=== PATIENT | female | born 1985 ===

== ENCOUNTER 2017-07-27 09:42 | Emergency (ER) | payer OTHER ==
[2017-07-27 10:06] VITALS: BMI 38.7
[2017-07-27 10:07] VITALS: BP 114/73; PULSE 65; RESP 17; TEMP 98.5; O2SAT 100
--- NOTE | 2017-07-27 10:37 | ED PDOC ---
HPI: General Adult Time Seen by Provider: 07/27/17 10:19 Chief Complaint (Provider): N/V, dizziness, left foot pain x 1 week History Per: Patient History/Exam Limitations: no limitations Onset/Duration Of Symptoms: Days Have you had recent travel within the past 21 days to any of the following countries: [place], [place], [place] or [place]?: No Current Symptoms Are (Timing): Still Present Additional Complaint(s): 32 yo female with no medical problems presents with suprapubic discomfort, nausea, and dizziness for 3 days. Pt also reports localized left heel pain for 1 week. Pt states she has not taken anything for the symptoms. Pt denies fever /chills. Unknown status Past Medical History Reviewed: Historical Data, Nursing Documentation, Vital Signs Vital Signs: Last Vital Signs Temp 98.5 F 07/27/17 10:06 Pulse 65 07/27/17 10:06 Resp 17 07/27/17 10:06 BP 114/73 07/27/17 10:06 Pulse Ox 100 07/27/17 10:56 - Medical History PMH: Denies: Alzheimer's Disease, Anemia, Anxiety, Arthritis, Asthma, Atrial Fibrillation, Bipolar Disorder, Bronchitis, Cardia Arrhythmia, CHF, COPD, Crohn' s Disease, Dementia, Depression, Diverticulitis, Emphysema, Fractures, Gastritis , Gall Bladder Disease, HIV, HTN, Hypercholesterolemia, Hyperthyroidism, Hypothyroidism, Kidney Stones, Migraine, Mitral Valve Prolapse, Multiple Sclerosis, Osteoporosis, Pancreatitis, Parkinson's Disease, Peripheral Edema, Pneumonia, Post Traumatic Stress Disorder, Pulmonary Embolism, Chronic Kidney Disease, Rheumatoid Arthritis, Schizophrenia, Seizures, Sickle Cell Disease, Sexually Transmitted Disease, Sleep Apnea, TIA - Surgical History Surgical History: Denies: Appendectomy, CABG, Carotid Endarterectomy, Cholecystectomy, Coronary Stent, Pacemaker, Tonsillectomy - Family History Family History: States: No Known Family Hx - Living Arrangements Living Arrangements: With Family - Social History Current smoker - smoking cessation education provided: No - Immunization History Hx Tetanus Toxoid Vaccination: No - Home Medications Home Medications: Ambulatory Orders Medication Instructions Recorded Dexlansoprazole [Dexilant] 60 mg PO DAILY 07/24/16 Metoclopramide [Reglan] 10 mg PO BID 07/24/16 Doxycycline Hyclate 100 mg PO Q12 #14 tab 07/26/16 Ibuprofen [Motrin Tab] 800 mg PO TID PRN #30 tab 07/26/16 Doxycycline Hyclate 100 mg PO BID 7 Days capsule 12/01/16 Ibuprofen [Motrin] 600 mg PO TID 7 Days tab 12/01/16 Naproxen [Naprosyn] 500 mg PO BID #20 tab 05/09/17 Nitrofurantoin Macrocrystals 100 mg PO BID #14 cap 05/09/17 [Macrobid] Multivit/Folic Acid/I 1 tab PO DAILY #30 tab 07/27/17 [ Plus] - Allergies Allergies/Adverse Reactions: Allergies Allergy/AdvReac Type Severity Reaction Status Date / Time No Known Allergies Allergy Verified 07/27/17 10:35 Review of Systems ROS Statement: Except As Marked, All Systems Reviewed And Found Negative Constitutional: Negative for: Fever, Chills Gastrointestinal: Positive for: Nausea, Vomiting, Abdominal Pain Physical Exam - Reviewed Nursing Documentation Reviewed: Yes Vital Signs Reviewed: Yes - Physical Exam Appears: Positive for: Well, Non-toxic, No Acute Distress Head Exam: Positive for: ATRAUMATIC, NORMAL INSPECTION, NORMOCEPHALIC Skin: Positive for: Normal Color, Warm, DRY Eye Exam: Positive for: Normal appearance ENT: Positive for: Normal ENT Inspection Neck: Positive for: Normal, Painless ROM Cardiovascular/Chest: Positive for: Regular Rate, Rhythm Respiratory: Positive for: CNT, Normal Breath Sounds Gastrointestinal/Abdominal: Positive for: Normal Exam, Bowel Sounds, Soft. Negative for: Tenderness, Guarding Back: Positive for: Normal Inspection Extremity: Positive for: Normal ROM, Other (Tenderness of achilles tendon, left ) Neurologic/Psych: Positive for: Alert, Oriented - Laboratory Results Result Diagrams: 07/27/17 11:00 07/27/17 11:00 - ECG O2 Sat by Pulse Oximetry: 100 Medical Decision Making Medical Decision Making: (+). PT Labs and US ordered. US with (+) gestational sac, no yolk sac. Consistent with beta hCg < 1000 Repeat beta HcG in 48 hours. Labs normal. Disposition - Clinical Impression Clinical Impression: Achilles tendonitis, -related symptom - Patient ED Disposition Is Patient to be Admitted: No Counseled Patient/Family Regarding: Diagnosis, Need For Followup, Rx Given - Disposition Referrals: [facility] [Outside] [facility] [Outside] Disposition: Routine/Home Disposition Time: 13:18 Condition: GOOD Additional Instructions: Please follow-up with OB in 48 hours. Prescriptions: Multivit/Folic Acid/I [ Plus] 1 tab PO DAILY #30 tab Instructions: Achilles Tendinitis (ED) Print Language: TAMAZIGHT
[2017-07-27] MEDS ORDERED: Lactated Ringer's 1,000 ML IV SCH (11:00)
[2017-07-27 11:16] LABS: HEMOGLOBIN 12.5 g/dL (12.0-16.0); MEAN CELL VOLUME 83.6 fl (81.0-99.0); MEAN CORPUSCULAR HEMOGLOBIN 28.1 pg (27.0-31.0); MEAN CORPUSCULAR HGB CONC 33.6 g/dL (33.0-37.0); RBC 4.45 Mil/uL (3.80-5.20)
[2017-07-27 11:35] LABS: SQUAMOUS EPITHIAL 11 /hpf (0-5); URINE BACTERIA RARE (<OCC); URINE BILIRUBIN NEGATIVE (NEGATIVE); URINE BLOOD NEGATIVE (NEGATIVE); URINE CLARITY CLOUDY (Clear); URINE COLOR YELLOW (YELLOW); URINE GLUCOSE (UA) NEG (Normal); URINE LEUKOCYTE ESTERASE SMALL Leu/uL (Negative); URINE NITRATE NEGATIVE (NEGATIVE); URINE PROTEIN NEGATIVE (NEGATIVE); URINE UROBILINOGEN 0.2-1.0 mg/dL (0.2-1.0)
[2017-07-27 11:37] LABS: ALB/GLOB RATIO 1.2 (1.0-2.1); ALBUMIN 4.2 g/dL (3.5-5.0); ALT/SGPT 58 U/L (9-52); AST/SGOT 28 U/L (14-36); BLOOD UREA NITROGEN 13 mg/dl (7-17); CALCIUM 9.3 mg/dL (8.4-10.2); GFR AFRICAN-AMERICAN > 60; GFR NON-AFRICAN AMERICAN > 60
--- NOTE | 2017-07-27 12:42 | US ---
PROCEDURE: First trimester ultrasound HISTORY: , abdominal pain COMPARISON: None. TECHNIQUE: Standard protocol for this study/examination. FINDINGS: Small gestational sac 0.91 cm below threshold for calculation of reliable gestational age. No yolk sac or pole identified. Uterus measures 5.6 x 7.3 x 9.8 cm. Location of fibroid and size: Anterior lower uterine segment 1.7 x 1.8 cm. Right ovary 2.5 x 4.3 cm. Normal flow. Left ovary 2.2 x 2.4 x 3.3 cm. Normal flow. No adnexal masses identified. Closed cervix 3.6 cm. IMPRESSION: Presumed early intrauterine gestation based on small gestational sac below threshold for calculation of reliable gestational age. Absence of yolk sac and pole.
== END 2017-07-27 13:38 | disposition home or self-care (01) ==
LOC: H.ER 09:42
DX: M76.60 Achilles tendinitis, unspecified leg (principal); R42 Dizziness and giddiness; O21.9 Vomiting of pregnancy, unspecified